=== PATIENT | female | born 1950 | race Caucasian/White ===

== ENCOUNTER 2020-08-13 09:12 | Inpatient (IN) | payer OTHER, SELFPAY ==
[~2020-08-13] VITALS: Ht 160 cm; Wt 72.6 kg
[~2020-08-13 09:12] MED LIST: BENA10TA25 PO; LEVO0.083 PO; METF500T PO; OMEP40EC24 PO; SIMV20TA1 PO; SITA100T8 PO
--- NOTE | 2020-08-13 09:13 | NUR ---
Patient BIBA BLS, transferred to bed 8. RN is evaluating the patient at bedside.
[2020-08-13 09:18] VITALS: BP 157/56
--- NOTE | 2020-08-13 09:27 | NUR ---
70 Y/O FEMALE BIBA FROM HOME, PATIENT TESTED POSITIVE FOR COVID ON SUNDAY AND HAS BEEN FEELING GRADUAL ONSET OF GEN WEAKNESS FOR 4 DAYS. PATIENT DX WITH LUNG CANCER X2 WEEKS AGO. MILD SOB REPORTED. VSS. RESP EVEN AND UNLABORED. PATIENT UNABLE TO AMBULATE AT THIS TIME D/T WEAKNESS. ALLERGIES: MORPHINE, NORCO PMH: LUNG CANCER, DM, HTN
--- NOTE | 2020-08-13 09:30 | NUR ---
Dr. Pham is evaluating the patient at bedside.
[2020-08-13] MEDS ORDERED: KETOROLAC 30 MG/ML VIAL IVP ONE (09:35)
[2020-08-13] MEDS ORDERED: NACL 0.9% 1,000 ML IV ONE (09:35)
[2020-08-13] MEDS ORDERED: LOSA25TA43 PO (09:36)
[2020-08-13] MEDS ORDERED: METO25TA14 PO (09:36)
[2020-08-13] MEDS ORDERED: VITD400 PO (09:37)
--- NOTE | 2020-08-13 09:49 | NUR ---
highway maintenance technician at bedside.
[2020-08-13 10:16] LABS: BASOPHILS % (AUTO) 0.4 % (0.0-2.0); EOSINOPHILS % (AUTO) 0.2 % (0.0-4.0); HEMOGLOBIN 12.8 g/dL (12.0-16.0); LYMPHOCYTES # (AUTO) 0.7 K/uL (2.5-16.5); LYMPHOCYTES % (AUTO) 22.3 % (20.5-51.1); MEAN CORPUSCULAR HEMOGLOBIN 31 pg (27-31); MEAN CORPUSCULAR HGB CONC 34 g/dL (33-37); MEAN CORPUSCULAR VOLUME 93.1 fL (80-94); MONOCYTES # (AUTO) 0.2 K/uL (0.8-1.0); MONOCYTES % (AUTO) 6.6 % (1.7-9.3); NEUTROPHILS # (AUTO) 2.2 K/uL (1.8-7.7); NEUTROPHILS % (AUTO) 70.5 % (42.2-75.2); PLATELET COUNT (AUTO) 145 K/uL (140-450); RED BLOOD CELL COUNT(AUTO) 4.08 MIL/uL (4.20-5.40); RED CELL DISTRIBUTION WIDTH 13.3 % (11.6-13.7); WHITE BLOOD COUNT (AUTO) 3.1 K/uL (4.8-10.8)
[2020-08-13 10:49] LABS: ALBUMIN 3.5 g/dL (3.4-5.0); ANION GAP 15.5 (8-16); CARBON DIOXIDE 22.6 mmol/L (21-32); CREATININE 0.7 mg/dL (0.6-1.3); POTASSIUM 4.1 mmol/L (3.5-5.1); TOTAL BILIRUBIN 0.3 mg/dL (0.0-1.0)
--- NOTE | 2020-08-13 10:54 | NUR ---
Dr. Pham is reevaluating the patient at bedside.
[2020-08-13] MEDS ORDERED: AZITHROMYCIN 500 MG in DEXTROSE 5% 250 ML IV ONE (11:00)
[2020-08-13] MEDS: NACL 0.9% 1,000 ML IV SCH ×2 (11:02→21:02)
[2020-08-13] MEDS ORDERED: DOCUSATE SODIUM 100 MG GELCAP PO PRN (11:05)
[2020-08-13] MEDS ORDERED: MORPHINE SULFATE 2 MG/ML SYR IVP PRN (11:05)
[2020-08-13] MEDS ORDERED: ZOLPIDEM 5 MG TAB PO PRN (11:05)
[2020-08-13] MEDS ORDERED: ACETAMINOPHEN 325 MG TAB PO PRN (11:05)
[2020-08-13] MEDS ORDERED: HYDROcodone/APAP 5/325 MG 1 TAB TAB PO PRN (11:05)
[2020-08-13] MEDS ORDERED: ALBUTEROL HFA MDI 90 MCG/ACTUATION 8 GM INH PRN (11:05)
[2020-08-13] MEDS ORDERED: ONDANSETRON 4 MG/2 ML VIAL IVP PRN (11:05)
[2020-08-13] MEDS ORDERED: cefTRIAXone 1,000 MG VIAL ONE (11:12)
[2020-08-13 11:35] VITALS: BP 143/91
--- NOTE | 2020-08-13 11:35 | NUR ---
RECEIVED REPORT FROM ER NURSE VENICE WALL PATIENT IS AMBULATORY, AAOX4, ON OXYGEN AT 2LPM VIA NC, SKIN INTACT AND IV SITES INTACT AND PATENT ON THE RIGHT AC. ORIENTED TO HER ROOM, MEDICATIONS FROM HOME GIVEN TO PHARMACY FOR SAFE KEEPING. SAFETY MEASURES IN PLACE AND CALL LIGHT WITHIN REACH. WILL CONTINUE TO MONITOR.
[2020-08-13 11:40] LABS: CHOL/HDL RATIO 2.2 (1-4.5); MAGNESIUM 1.9 mg/dL (1.8-2.4); PHOSPHORUS 2.7 mg/dL (2.5-4.9)
--- NOTE | 2020-08-13 11:44 | NUR ---
Patient will be admitted to care of [facility]. Admited to TELE. Will go to room 115. Belongings list completed. Report to AMY.
[2020-08-13 11:46] LABS: PROTHROMBIN TIME 9.3 secs (10.8-13.4)
[2020-08-13 12:02] LABS: FREE T4 (FREE THYROXINE) 1.59 ng/dL (0.76-1.46); THYROID STIMULATING HORMONE 0.11 uIU/mL (0.34-3.74)
[2020-08-13] MEDS ORDERED: DEXTROSE 50% 50 ML SYR IVP PRN (12:05)
[2020-08-13] MEDS ORDERED: AZITHROMYCIN 500 MG in DEXTROSE 5% 250 ML IV SCH (12:24)
--- NOTE | 2020-08-13 12:30 | NUR ---
MEDICATIONS DUE GIVEN AT THIS TIME, NO DISTRESS NOTED, DENIES PAIN AND PATIENT HAS GENERAL WEAKNESS ABLE TO AMBULATE WITH 1 ASSIST. SAFETY MEASURES IN PLACE, CALL LIGHT WITHIN REACH WILL CONTINUE TO MONITOR.
--- NOTE | 2020-08-13 14:30 | NUR ---
,MADE ROUNDS AT THIS TIME PATIENT IS SLEEPING, NO DISTRESS NOTED , DENIES PAIN SAFETY MEASURES IN PLACE CALL LIGHT WITHIN REACH WILL CONTINUE TO MONITOR.
[2020-08-13 16:00] VITALS: BP 135/68
--- NOTE | 2020-08-13 16:30 | NUR ---
BLOOD SUGAR MONITORING DONE AT A LEVEL OF 130 MG/DL NO INSULIN COVERAGE. SAFETY MEASURES IN PLACE AND CALL LIGHT WITHIN REACH. WILL CONTINUE TO MONITOR.
[2020-08-13] MEDS: BLOOD GLUCOSE MONITORING 1 DEV DEV FS SCH ×2 (16:52→21:13)
--- NOTE | 2020-08-13 19:17 | NUR ---
ENDORSED PT TO NIGHT NURSE FOR CONTINUITY OF CARE. PT IS STABLE.
--- NOTE | 2020-08-13 19:18 | NUR ---
RECEIVED PATIENT IN STABLE CONDITION FROM AM SHIFT NURSE FOR CONTINUITY OF CARE. TELE PATIENT. AAOX4. RESPIRATIONS EVEN, UNLABORED. SOB UPON EXERTION. CONTINUES ON O2 2L VIA NC, O2SAT 97%. NO C/O PAIN. NO S/S ACUTE DISTRESS. SKIN WARM, DRY. IV SITE TO RIGHT AC 18G PATENT/INTACT, INFUSING FLUIDS WELL. ABDOMEN SOFT, NONTENDER, NONDISTENDED. PATIENT IS CONTINENT OF B/B. PLAN OF CARE DISCUSSED WITH PATIENT. CALL LIGHT WITHIN REACH. ISOLATION PRECAUTIONS OBSERVED BY ALL STAFF.
[2020-08-13] MEDS ORDERED: remdesivir COMMUNICATION ORDER 1 EA MISC MC PRN (19:40)
[2020-08-13 20:00] VITALS: BP 121/65
--- NOTE | 2020-08-13 20:04 | NUR ---
PT SPO2 96% ON RA HR 83 PT SITTING UP TALKING ON PHONE PT DENIES SOB W/ NO S/S OF DISTRESS AT THIS TIME
[2020-08-13] MEDS: METOPROLOL 25 MG TAB PO SCH (20:50)
[2020-08-13] MEDS: SIMVASTATIN 20 MG TAB PO SCH (20:50)
[2020-08-13] MEDS: ZINC SULF 220 MG CAP PO SCH (20:50)
--- NOTE | 2020-08-13 21:00 | NUR ---
PATIENT TITRATED TO ROOM AIR WITH AN O2SAT OF 97%. PATIENT CONTINUES TO BE SOB UPON EXERTION. PROVIDED EDUCATION REGARDING FREQUENT REST PERIODS. PATIENT VERBALIZED UNDERSTANDING. NO C/O PAIN. NO S/S ACUTE DISTRESS. CALL LIGHT WITHIN REACH. ISOLATION PRECAUTIONS OBSERVED BY ALL STAFF.
[2020-08-13] MEDS: INSULIN LISPRO SLIDING SCALE 100 UNITS/ML VIAL SUBQ PRN (21:14)
--- NOTE | 2020-08-13 22:30 | NUR ---
PATIENT'S POSITIVE RAPID COVID TEST REPORTED TO DR WEST.
--- NOTE | 2020-08-13 23:00 | NUR ---
PATIENT TALKING ON PHONE WITH FAMILY. NO C/O PAIN. NO S/S ACUTE DISTRESS. CALL LIGHT WITHIN REACH. ISOLATION PRECAUTIONS OBSERVED BY ALL STAFF.
[2020-08-14] VITALS: BP 121/62
--- NOTE | 2020-08-14 | NUR ---
PT SITTING UP IN BED WITH 2 LITERS VIA N/C. PT B/P LIZZ ANY SOB OR PAIN BUT APPEARS ANXIOUS, PT DECLINES ANY PRN MEDICATION AT THIS TIME. V/S FOLLOWS: T 98.2 P 57 R 18 B/P 134/73 02 96% ON 2 LITERS VIA N/C. Addendum: 08/15/20 at 0151 by Adelia Gill RN NOT 08/14/20 AT MIDNIGHT BUT 08/15/20 AT MIDNIGHT.
--- NOTE | 2020-08-14 01:37 | NUR ---
PATIENT ASLEEP. NO S/S ACUTE DISTRESS. CALL LIGHT WITHIN REACH. ISOLATION PRECAUTIONS OBSERVED BY ALL STAFF.
--- NOTE | 2020-08-14 03:42 | NUR ---
PATIENT IS ASLEEP. NO S/S ACUTE DISTRESS. CALL LIGHT WITHIN REACH. ISOLATION PRECAUTIONS IN PLACE.
[2020-08-14 04:00] VITALS: BP 130/80
--- NOTE | 2020-08-14 05:54 | NUR ---
PATIENT IS AWAKE AND RESTING COMFORTABLY IN BED. NO C/O PAIN. NO S/S ACUTE DISTRESS. CALL LIGHT WITHIN REACH. ISOLATION PRECAUTIONS OBSERVED BY ALL STAFF.
[2020-08-14] MEDS: BLOOD GLUCOSE MONITORING 1 DEV DEV FS SCH ×4 (06:30→21:00)
[2020-08-14] MEDS: NACL 0.9% 1,000 ML IV SCH ×2 (06:30→09:45)
[2020-08-14] MEDS: INSULIN LISPRO SLIDING SCALE 100 UNITS/ML VIAL SUBQ PRN ×3 (06:31→16:49)
[2020-08-14] MEDS: LEVOTHYROXINE 0.088 MG TAB PO SCH (06:32)
--- NOTE | 2020-08-14 07:01 | NUR ---
ENDORSED PATIENT IN STABLE CONDITION TO AM SHIFT NURSE FOR CONTINUITY OF CARE.
[2020-08-14 07:09] LABS: HEMATOCRIT 36.9 % (36-48); HEMOGLOBIN 12.7 g/dL (12.0-16.0); MEAN CORPUSCULAR HEMOGLOBIN 32 pg (27-31); MEAN CORPUSCULAR HGB CONC 34 g/dL (33-37); MEAN CORPUSCULAR VOLUME 92.7 fL (80-94); PLATELET COUNT (AUTO) 163 K/uL (140-450); RED BLOOD CELL COUNT(AUTO) 3.98 MIL/uL (4.20-5.40); RED CELL DISTRIBUTION WIDTH 13.1 % (11.6-13.7)
--- NOTE | 2020-08-14 07:12 | NUR ---
RECEIVED REPORT FROM RESIDENTIAL PROGRAM WORKER RN FOR CONTINUITY OF CARE. PATIENT IS SLEEPING IN BED. RESPIRATORY EVEN AND UNLABORED. CONTINUOUSLY O2 2L VIA NC. SKIN WARM AND DRY. INTACT. IV SITE RIGHT AC 18G INFUSING NS 100ML/HR. DROPLET PRECAUTION NOTED FOR POSITIVE COVID 19. NO ACUTE DISTRESS NOTED AT THIS TIME. SAFETY MEASURES IN PLACE, CALL LIGHT WITHIN REACH. WILL CONTINUE TO MONITOR.
[2020-08-14 07:20] LABS: ALBUMIN 3.2 g/dL (3.4-5.0); ANION GAP 18.3 (8-16); CARBON DIOXIDE 23.6 mmol/L (21-32); CREATININE 0.7 mg/dL (0.6-1.3); MAGNESIUM 1.7 mg/dL (1.8-2.4); PHOSPHORUS 2.5 mg/dL (2.5-4.9); POTASSIUM 3.9 mmol/L (3.5-5.1); TOTAL BILIRUBIN 0.3 mg/dL (0.0-1.0)
[2020-08-14 07:54] LABS: WHITE BLOOD COUNT (AUTO) 1.8 K/uL (4.8-10.8)
[2020-08-14 07:55] LABS: LYMPHOCYTES % (MANUAL) 34 % (20-46); MONOCYTES % (MANUAL) 6 % (5-12)
[2020-08-14 08:00] VITALS: BP 139/87
[2020-08-14] MEDS ORDERED: AZITHROMYCIN 250 MG TAB PO SCH (09:00)
[2020-08-14] MEDS: VITAMIN D 400 IU TAB PO SCH (09:33)
[2020-08-14] MEDS: ZINC SULF 220 MG CAP PO SCH ×2 (09:34→22:22)
[2020-08-14] MEDS: LOSARTAN 25 MG TAB PO SCH (09:35)
[2020-08-14] MEDS: ASCORBIC ACID 500 MG TAB PO SCH (09:35)
[2020-08-14] MEDS: METOPROLOL 25 MG TAB PO SCH ×2 (09:35→22:21)
[2020-08-14] MEDS: ENOXAPARIN 40 MG/0.4 ML SYR SUBQ SCH (09:43)
--- NOTE | 2020-08-14 09:45 | NUR ---
SCHEDULED MORNING MEDICATIONS GIVEN, EDUCATION PROVIDED, PATIENT TOLERATED WELL. PATIENT COMPLAINTS OF PRODUCTIVE COUGH AND FATIGUE, POOR APPETITE. INFORMED PATIENT THOSE ARE TYPICAL S/S OF COVID. ENCOURAGED PT TO TAKE DEEP BREATHE, KEEP HYDRATION AND TRY TO INTAKE SOME FOOD TO KEEP NUTRITION. PATIENT VERBALIZED UNDERSTANDING AND APPRECIATE OFFERING TEACHING. O2 SAT 96-97% WITH 2L NC. SAFETY MEASURES IN PLACE, CALL LIGHT WITHIN REACH. WILL CONTINUE TO MONITOR.
[2020-08-14] MEDS ORDERED: CLINICAL MONITORING MC PRN (09:50)
[2020-08-14] MEDS ORDERED: POTASSIUM CHLORIDE 40 MEQ, LIDOCAINE MPF 1% 25 MG in NACL 0.9% 250 ML IV PRN (11:05)
--- NOTE | 2020-08-14 11:54 | NUR ---
ADMINISTERED FIRST DOSE OF REMDESIVIR VIA IVPB. ADMINISTERED 4 UNITS OF HUMALOG FOR BLOOD GLUCOSE LEVEL 214. EDUCATION PROVIDED, PATIENT TOLERATED WELL. PATIENT DENIES DISCOMFORT AT THIS TIME. SAFETY MEASURES IN PLACE, WILL CONTINUE TO MONITOR.
[2020-08-14 12:00] VITALS: BP 144/74
[2020-08-14] MEDS ORDERED: REMDESIVIR (EUA) 200 MG in NACL 0.9% 100 ML IV SCH (12:00)
[2020-08-14] MEDS ORDERED: MAGNESIUM OXIDE 400 MG TAB PO SCH (13:00)
[2020-08-14 16:00] VITALS: BP 139/74
--- NOTE | 2020-08-14 16:49 | NUR ---
2 UNITS OF HUMALOG ADMINISTERED FOR BLOOD GLUCOSE LEVEL 185, EDUCATION PROVIDED, PATIENT TOLERATED WELL. O2 SAT 95% WITH 2L NC. NO ACUTE DISTRESS NOTED. SAFETY MEASURES IN PLACE, CALL LIGHT WITHIN REACH. WILL CONTINUE TO MONITOR.
--- NOTE | 2020-08-14 18:22 | NUR ---
PATIENT HAVING DINNER. O2 SAT 97% WITH 2L NC. DENIES PAIN. SAFETY MEASURES IN PLACE. WILL CONTINUE TO MONITOR.
--- NOTE | 2020-08-14 19:30 | NUR ---
RECEIVED REPORT FROM CARINA MARQUEZ DAYSHIFT NURSE AT BEDSIDE FOR CONTINUITY OF CARE, PT IN STABLE CONDITION.
[2020-08-14 20:00] VITALS: BP 147/72
--- NOTE | 2020-08-14 20:10 | NUR ---
PT DENIES SOB W/ NO DISTRESS NOTE3D PT SPO2 95% ON 2LNC
--- NOTE | 2020-08-14 21:00 | NUR ---
PT SITTING UP IN BED, SHE IS AOX4 AND [place]ER SPEAKING. PT DENIES SOB OR PAIN, RESPIRATIONS ARE EVEN AND UNLABORED. WITH 2 LITERS VIA N/C. PT ON PHONE WITH HER DAUGHTER PEPE, WHOM HELPED TO TRANSLATE FOR PT. PT IV SITE INTACT AND ASYMPTOMATIC AND RUNNING NORMAL SALINE AT 100MLS/HR. PT F/S IS 156. PT COVERAGE HELD DUE TO PT CV/O OF POOR APPETITE. FAMILY SAID TOMORROW THEY WILL BRING HER ETHNIC FOOD TO ENCOURAGE HER TO EAT. KELLY V/S FOLLOWS: T 97.2 P 66 R 18 B/P 147/72 02 95% ON 2 LITERS VIA N/C. PT GIVEN ORDERED MEDICATION OF LOPRESSOR, ZINC SULFATE AND ZOCOR. EDUCATION REGARDING MEDICATION PROVIDED AT BEDSIDE. DROPLET PRECAUTIONS IN PLACE.
[2020-08-14] MEDS ORDERED: CRUSHER, PILL MC ONE (22:12)
--- NOTE | 2020-08-14 22:15 | NUR ---
PT SITTING UP WITH 2 LITERS VIA N/C. RESPIRATIONS EVEN AND UNLABORED BUT PT MOANING A BIT AND APPEARS RESTLESS. PT SAID SHE JUST FEELS BAD, HOWEVER, DECLINED ANY PRN MEDICATION FOR NAUSEA, INSOMNIA OR ANXIETY. WILL CONTINUE TO MONITOR, ALL DROPLET PRECAUTIONS IN PLACE.
[2020-08-14] MEDS: SIMVASTATIN 20 MG TAB PO SCH (22:22)
[2020-08-15] VITALS: BP 134/73
--- NOTE | 2020-08-15 00:15 | NUR ---
PT SITTING UP IN BED AND APPEARS ANXIOUS AND SLIGHTLY UNCOMFORTABLE . PT DENIES ANY SOB OR PAIN PT SAID SHE JUST FEELS BAD, BUT DECLINES ANY PRN MEDICATION. V/S FOLLOWS; T 98.2 P 57 R 18 B/P 134/73 02 96% WITH 2 LITERS VIA N/C. ALL DROPLET PRECAUTIONS IN PLACE.
--- NOTE | 2020-08-15 01:15 | NUR ---
PT STILL UP MOANING. WITH C/O OF DISCOMFORT OF BELLY, ABDOMEN SOFT AND DISTENDED. PT WAS TRANSLATED NOT HAVING PAIN BUT JUST FEELING BAD AND HER BELLY FEELS UPSET, PT WAS GIVEN 1 TAB PO/PRN COLACE AND ENCOURAGE TO DRINK WATER, PT DENIES PAIN, NAUSEA AND ANXIETY. WILL CONTINUE TO MONITOR DROPLET PRECAUTIONS IN PLACE,
[2020-08-15] MEDS: NACL 0.9% 1,000 ML IV SCH ×3 (03:51→23:25)
[2020-08-15 04:00] VITALS: BP 133/74
--- NOTE | 2020-08-15 04:30 | NUR ---
PT IN BED SAID HER BELLY FELT BETTER AND THAT SHE HAD HAD A BM. V/S FOLLOWS: T 97.3 P 62 R 18 B/P 133/74 02 94% ON 2 LITERS VIA N/C. ALL DROPLET AND UNIVERSAL FALLS IN PLACE.
[2020-08-15 06:09] LABS: BASOPHILS % (AUTO) 0.3 % (0.0-2.0); HEMATOCRIT 35.2 % (36-48); HEMOGLOBIN 12.1 g/dL (12.0-16.0); LYMPHOCYTES # (AUTO) 0.9 K/uL (2.5-16.5); LYMPHOCYTES % (AUTO) 17.6 % (20.5-51.1); MEAN CORPUSCULAR HEMOGLOBIN 32 pg (27-31); MEAN CORPUSCULAR HGB CONC 34 g/dL (33-37); MEAN CORPUSCULAR VOLUME 92.2 fL (80-94); MONOCYTES # (AUTO) 0.4 K/uL (0.8-1.0); MONOCYTES % (AUTO) 8.2 % (1.7-9.3); NEUTROPHILS # (AUTO) 3.9 K/uL (1.8-7.7); NEUTROPHILS % (AUTO) 73.9 % (42.2-75.2); PLATELET COUNT (AUTO) 169 K/uL (140-450); RED BLOOD CELL COUNT(AUTO) 3.82 MIL/uL (4.20-5.40); RED CELL DISTRIBUTION WIDTH 13.2 % (11.6-13.7); WHITE BLOOD COUNT (AUTO) 5.3 K/uL (4.8-10.8)
--- NOTE | 2020-08-15 06:30 | NUR ---
P[T FINGERSTICK IS 114 NO HUMALOG COVERAGE NEEDED.
[2020-08-15 06:32] LABS: ALBUMIN 3.1 g/dL (3.4-5.0); ANION GAP 12.2 (8-16); CARBON DIOXIDE 24.4 mmol/L (21-32); CREATININE 0.5 mg/dL (0.6-1.3); POTASSIUM 3.6 mmol/L (3.5-5.1); TOTAL BILIRUBIN 0.3 mg/dL (0.0-1.0)
[2020-08-15] MEDS: BLOOD GLUCOSE MONITORING 1 DEV DEV FS SCH ×4 (06:34→20:02)
[2020-08-15 06:46] LABS: MAGNESIUM 1.8 mg/dL (1.8-2.4); PHOSPHORUS 2.6 mg/dL (2.5-4.9)
--- NOTE | 2020-08-15 07:10 | NUR ---
RECEIVED REPORT FROM PM RNPAT. PT CAME FROM HOME. GREEK SPEAKING. CC: FATIGUE, SOB, "NOT FEELING WELL". DX: COVID 19+, GEN WEAKNESS. HX: C SECTION, ASTHMA, HLD, THYROID CA, DM, HTN. ALLERGIES: TYLENOL, HYDROCODONE, MORPHINE. SINUS R: SB 48-55. FULLL CODE. IV: RAC 18G RUNNING NS AT 100MLS. PT IS ON CARDIAC DIET. A&OX4. PT IS AMBULATORY. PT IS ON 2L NC SATING 95-99%. LAST BLOOD SUGAR: 114. PLAN: MONITOR O2 SAT, F/U WITH CONSULTS.
[2020-08-15 08:00] VITALS: BP 128/81
[2020-08-15] MEDS: LOSARTAN 25 MG TAB PO SCH (08:40)
[2020-08-15] MEDS: VITAMIN D 400 IU TAB PO SCH (08:40)
[2020-08-15] MEDS: ENOXAPARIN 40 MG/0.4 ML SYR SUBQ SCH (08:41)
[2020-08-15] MEDS: ASCORBIC ACID 500 MG TAB PO SCH (08:41)
[2020-08-15] MEDS: ZINC SULF 220 MG CAP PO SCH ×2 (08:41→20:03)
[2020-08-15] MEDS: MAGNESIUM OXIDE 400 MG TAB PO SCH (08:41)
[2020-08-15] MEDS: METOPROLOL 25 MG TAB PO SCH ×2 (08:43→20:03)
--- NOTE | 2020-08-15 09:00 | NUR ---
PASSED MEDICATIONS TO PT. PT IS COMPLAINING OF ABDOMINAL PAIN. ASSESSED: PT ABD IS FIRM AND TENDER TO TOUCH. NOTIFIED DR COSTA. WAITING FOR FURTHER ORDERS.
--- NOTE | 2020-08-15 09:42 | NUR ---
PATIENT HAS BEEN SCREENED AND CATEGORIZED HIGH NUTRITION RISK. PATIENT WILL BE SEEN WITHIN 1-2 DAYS OF ADMISSION. 08/14/20 - 08/15/20 YESSICA ORTIZ MBA, RD
--- NOTE | 2020-08-15 10:30 | NUR ---
DR COSTA ORDERED ANTI GAS MEDICATION TO HELP WITH DISTENSION. GIVEN TO PT.
--- NOTE | 2020-08-15 10:35 | NUR ---
08/15/20 RD INITIAL ASSESSMENT COMPLETED PLEASE REFER TO NUTRITION ASSESSMENT UNDER CARE ACTIVITY FOR ESTIMATED NUTRITIONAL NEEDS. RD RECOMMENDATIONS: 1. RECOMMEND CONTINUE CARDIAC DIET 2. ADD DIET HEALTHSHAKES WITH LUNCH 3. HONOR FOOD PREFERENCES & ENCOURAGE INCREASED PO INTAKE 4. F/U 2-3 DAYS; HIGH RISK YESSICA ORTIZ MBA, RD
--- NOTE | 2020-08-15 11:04 | NUR ---
EDITOR GREETING CARD NOTE: Patient's Orientation Unable To Assess Information Provided By LI HOLMAN - DAUGHTER Comments SW WAS UNABLE TO MEET PATIENT AT BEDSIDE DUE TO MEDICAL CONDITION. SW COMPLETED ASSESSMENT WITH PATIENT'S DAUGHTER, LI. Mix Chemist, Realtionship and Phone Number LI HUSSEIN [phone] Healthcare Power of Lopper No Does Patient Have a POLST No Identifying Problems No Social Work Triggers Is A Social Work Consult Needed No Mandate Report Filed No Explanation Of Identifying Problems PATIENT IS A 70-YEAR-OLD FEMALE ADMITTED FOR COVID AND PNEUMONIA. PATIENT AHS PMHX OF THYROID CANCER, HYPERTENSION, HYPERLIPEDEMIA, AND TYPE 2 DIABETES. Admitted From Home Pre-Admission Level Of Functioning Status Total Care Level Of Functioning Comment PER LI, PATIENT REQUIRES TOTAL CARE. Prior Resources/Services Used In Last 12 Months [facility] Prior Resources/Service Comments PATIENT RECEIVES 114 HOURS MONTHLY FROM [facility]. Prior DME Wheelchair Dialysis Comments PER LI, PATIENT DOES NOT RECEIVE DIALYSIS. Living Situation Apartment Cond Patient Had Caregiver Yes Name and Contact Number Of Designated Caregiver LI HOLMAN - [phone] Home Support No Caregiver Issues Explanation Of Home Support PER LI, ALL PATIENT'S NEEDS ARE BEING MET. Financial Issues No Known Financial Issue Referral To The Financial Counselor Needed No Factors/Needs No D/C Needs Identified Pt/Rep Participated In Discharge Plan Yes Patient/Family Agress With Discharge Plan Yes Discharge Plan Comments TENTATIVE DISCHARGE PLAN IS FOR PATIENT TO RETURN HOME. DC Plan Status Initiated
[2020-08-15] MEDS ORDERED: SIMETHICONE 80 MG TAB.CHEW PO PRN (11:25)
--- NOTE | 2020-08-15 11:30 | NUR ---
PTS BLOOD SUGAR: 153, NO INSULIN GIVE DUE TO PT REFUSING TO EAT. DR. COSTA NOTIFIED.
[2020-08-15] MEDS: REMDESIVIR (EUA) 100 MG in NACL 0.9% 100 ML IV SCH (11:52)
[2020-08-15 12:00] VITALS: BP 141/79
[2020-08-15] MEDS: LORazepam 2 MG/ML VIAL IM/IVP PRN (12:47)
--- NOTE | 2020-08-15 13:00 | NUR ---
GAVE PT ATIVAN DUE TO PT FEELING ANXIOUS.
[2020-08-15] MEDS ORDERED: BENZOCAINE/MENTHOL 1 LOZ MM PRN (15:35)
[2020-08-15 16:00] VITALS: BP 130/62
[2020-08-15] MEDS: INSULIN LISPRO SLIDING SCALE 100 UNITS/ML VIAL SUBQ PRN ×2 (16:23→20:07)
--- NOTE | 2020-08-15 16:30 | NUR ---
PTS BLOOD SUGAR: 206, 4 UNITS. NO COMPLAINTS OF PAIN. GAVE COUGH MED TO SOOTHE THROAT. VS STABLE.
--- NOTE | 2020-08-15 19:15 | NUR ---
TRANSFER OF CARE TO ZACHARIAH MARQUEZ. NO COMPLAINTS OF PAIN, SOB, OR CHEST PAIN. VS STABLE. NO SIGNS OF DISTRESS.
--- NOTE | 2020-08-15 19:15 | NUR ---
RECEIVED BEDSIDE REPORT FROM DAY SHIFT NURSE FOR CONTINUITY OF CARE. PT IS AWAKE AND ALERT. LAYING IN SEMI FOWLERS POSITION AND NO RESPIRATORY DISTRESS NOTED. BREATHING IS UNLABORED. CHEST RISE AND FALL IS SYMMETRICAL. PT WAS AT O2 SAT 90% AND WAS INSTRUCTED TO PLACE OXYGEN BACK ON NARES. PT DID SO AND O2 SAT IS NOW 94%. SKIN IS WARM, DRY, AND INTACT. IV IS IN THE LEFT HAND 24 GAUGE RUNNING NS AT 100 ML PER HOUR PER ORDER. PT IS COVID 19 POSITIVE. DROPLET PRECAUTIONS AND FALL PRECAUTIONS ARE IN PLACE. BED IS IN THE LOWEST POSITION AND CALL LIGHT IS WITHIN REACH. PLAN OF CARE WAS DISCUSSED. PT IS STABLE AT THIS TIME.
[2020-08-15 20:00] VITALS: BP 131/62
[2020-08-15] MEDS: SIMVASTATIN 20 MG TAB PO SCH (20:04)
--- NOTE | 2020-08-15 20:07 | NUR ---
CHECKED PT'S BS AND THE READING WAS 175. PT WAS GIVEN 2 UNITS HUMALOG INSULIN PER SLIDING SCALE. MEDICATION EDUCATION WAS PROVIDED AND PT VERBALIZED UNDERSTANDING. WILL CONTINUE TO MONITOR.
--- NOTE | 2020-08-15 21:00 | NUR ---
PT IS AWAKE AND ALERT. A&OX4. PT DENIES ANY PAIN AT THIS TIME. SHE IS NOT COUGHING CURRENTLY. SITTING UPRIGHT IN BED. FLUIDS ARE RUNNING AND THE IV IS PATENT. BED IS IN THE LOWEST POSITION AND CALL LIGHT IS WITHIN REACH.
--- NOTE | 2020-08-15 21:22 | NUR ---
PT DENIES SOB 97% ON 2LNC HR 55
--- NOTE | 2020-08-15 22:45 | NUR ---
PT IS UP TO THE RESTROOM. PT AMBULATED WITH STANDBY ASSISTANCE. GAIT WAS STEADY, BUT PT APPEARED TO BE IN SOME PAIN. SHE DENIES ANY PAIN AT THE TIME. SHE IS NOW BACK IN BED AND RESTING IN SEMI FOWLERS POSITION. IV IS INFUSING AND NC IS ON WITH 2L OF OXYGEN. O2 SAT IS 95%. PT IS STABLE.
[2020-08-16] VITALS: BP 140/68
--- NOTE | 2020-08-16 00:30 | NUR ---
CALLED LAB AND ASKED IF PT HAD RECEIVED CONVALESCENT PLASMA 1 UNIT ORDERED ON 08/13/2020. WAS INFORMED PT HAD NO RECEIVED PLASMA. THEY INFORMED ME TO PUT IN AN ORDER FOR TYPE AND SCREEN AND PUT IN THE COMMENTS "CONVALESCENT PLASMA 1 UNIT" SO THEY WILL KNOW TO ORDER THE PLASMA. THEY INFORMED ME IT WILL TAKE AT LEAST A DAY BEFORE RECEIVING THE PLASMA AFTER THE TYPE AND SCREEN. WILL ENDORSE TO DAY SHIFT NURSE.
--- NOTE | 2020-08-16 00:45 | NUR ---
ROUNDED ON PT. SHE IS ASLEEP. CHEST RISE AND FALL IS SYMMETRICAL. NC IN PLACE WITH 2L O2. O2 SAT IS 96%. PT IS STABLE AT THIS TIME, WILL CONTINUE TO MONITOR.
--- NOTE | 2020-08-16 02:50 | NUR ---
PT IS ASLEEP. NO RESPIRATORY DISTRESS NOTED. CHEST RISE AND FALL SYMMETRICAL. PT IS IN HIGH FOWLERS POSITION. SB ON TELE MONITORING. 94% O2 SAT WITH 2L O2 NC. PT IS STABLE.
[2020-08-16 04:00] VITALS: BP 151/84
--- NOTE | 2020-08-16 04:45 | NUR ---
PT IS AWAKE AND SITTING UPRIGHT COUGHING. PT SAYS SHE FEELS SOB. BREATHING IS UNLABORED. O2 SAT IS 96% ON 2L O2 NC. PT WAS ALSO EXPLAINED THAT THE DOCTOR ORDERED CONVALESCENT PLASMA FOR HER COVID 19 DIAGNOSIS. RISKS AND BENEFITS WERE EXPLAINED. THE PURPOSE OF THE PLASMA WAS EXPLAINED. PT WAS GIVEN THE OPTION TO ACCEPT OR DECLINE THE TREATMENT AND SHE AGREED TO RECEIVE THE PLASMA. QUESTIONS WERE ANSWERED. CONSENT WAS SIGNED BY PATIENT.
--- NOTE | 2020-08-16 04:59 | NUR ---
PT IS UP TO THE RESTROOM. GAIT IS STEADY WITH STANDBY ASSISTANCE. PT VOIDED IN THE RESTROOM, NO BM SO FAR ON THIS SHIFT. PT IS NOW BACK IN BED IN HIGH FOWLERS POSITION. REQUESTED AND WAS BROUGHT HOT TEA TO DRINK. OXYGEN IS ON AT 3L O2 AND O2 SAT IS 92%. NO DISTRESS NOTED.
--- NOTE | 2020-08-16 05:45 | NUR ---
SPOKE TO SON, ILANA FARLEY, ON THE PHONE AND HE WAS ASKING FOR AN EXPLANATION ABOUT THE CONVALESCENT PLASMA. TOLD HIM ABOUT THE PURPOSE OF THE TREATMENT AND RISKS AND BENEFITS. SON WOULD LIKE TO SPEAK TO DOCTOR BEFORE PT RECEIVES PLASMA. WILL ENDORSE TO DAY SHIFT NURSE TO FOLLOW UP WITH SON WITH SPEAKING TO THE DOCTOR. ALSO PLACED A NOTE TAPED TO THE SIGNED CONSENT THAT THE SON NEEDS TO SPEAK TO THE DOCTOR BEFORE THE PLASMA IS GIVEN.
[2020-08-16] MEDS: BLOOD GLUCOSE MONITORING 1 DEV DEV FS SCH ×4 (06:05→20:24)
--- NOTE | 2020-08-16 06:10 | NUR ---
CHECKED PT'S BS AND IT WAS 110. IT IS WITHIN NORMAL RANGE AND NO INSULIN IS NEEDED PER SLIDING SCALE. PT IS ON THE PHONE WITH HER DAUGHTER AT THIS TIME.
[2020-08-16] MEDS: LEVOTHYROXINE 0.1 MG TAB PO SCH ×2 (06:34→08:45)
--- NOTE | 2020-08-16 07:20 | NUR ---
ENDORSED PT TO DAY SHIFT NURSE FOR CONTINUITY OF CARE. PT IS STABLE AT THIS TIME. PLAN OF CARE DISCUSSED. ENDORSED TO DAY SHIFT NURSE TO HAVE THE DOCTOR SPEAK WITH THE SON, ILANA, BEFORE THE PT RECEIVES THE PLASMA.
--- NOTE | 2020-08-16 07:21 | NUR ---
EIVED ENDORSEMENT FROM UNIVERSITY COUNSELOR, AWAKE,ALERT,ORIENTEDX3, BREATHING SPONTANEOUSLY AT ROOM AIR, NON LABORED NOTED. WITH ONGOING IV FLUID 0.9% NS AT 100ML/HOUR INFUSING AT LEFT HAND G 20 IV CANNULA NOTED. ON DROPLET ISOLATION DX WITH COVID POSITIVE. SAFETY MEASURES IN PLACE AND CONTINUE MONITOR. Addendum: 08/16/20 at 0902 by Cuauhtemoc Proctor RN RECEIVED ON O2 AT 3L/MIN VIA NC, SATURATING AT 94-95%.
[2020-08-16 07:58] LABS: BASOPHILS % (AUTO) 0.1 % (0.0-2.0); HEMATOCRIT 35.4 % (36-48); HEMOGLOBIN 12.2 g/dL (12.0-16.0); LYMPHOCYTES # (AUTO) 1.1 K/uL (2.5-16.5); LYMPHOCYTES % (AUTO) 13.6 % (20.5-51.1); MEAN CORPUSCULAR HEMOGLOBIN 32 pg (27-31); MEAN CORPUSCULAR HGB CONC 35 g/dL (33-37); MEAN CORPUSCULAR VOLUME 92.3 fL (80-94); MONOCYTES # (AUTO) 0.6 K/uL (0.8-1.0); MONOCYTES % (AUTO) 6.8 % (1.7-9.3); NEUTROPHILS # (AUTO) 6.5 K/uL (1.8-7.7); NEUTROPHILS % (AUTO) 79.5 % (42.2-75.2); PLATELET COUNT (AUTO) 184 K/uL (140-450); RED BLOOD CELL COUNT(AUTO) 3.84 MIL/uL (4.20-5.40); RED CELL DISTRIBUTION WIDTH 12.8 % (11.6-13.7); WHITE BLOOD COUNT (AUTO) 8.2 K/uL (4.8-10.8)
[2020-08-16 08:00] VITALS: BP 135/68
[2020-08-16 08:25] LABS: ALBUMIN 3.1 g/dL (3.4-5.0); ANION GAP 13.5 (8-16); CARBON DIOXIDE 24.8 mmol/L (21-32); CREATININE 0.5 mg/dL (0.6-1.3); POTASSIUM 3.3 mmol/L (3.5-5.1); TOTAL BILIRUBIN 0.3 mg/dL (0.0-1.0)
--- NOTE | 2020-08-16 08:30 | NUR ---
SEEN AND EXAMINED BY DR. COSTA, MADE AWARE THAT THE CONSENT FOR BLOOD TRANSFUSION NOT YET SIGN BY THE PATIENT,THE SON WANTS TO SPEAK WITH THE DOCTOR PRIOR THEY WILL DECIDE.
[2020-08-16] MEDS: VITAMIN D 400 IU TAB PO SCH (08:41)
[2020-08-16] MEDS: LOSARTAN 25 MG TAB PO SCH (08:44)
[2020-08-16] MEDS: MAGNESIUM OXIDE 400 MG TAB PO SCH (08:44)
[2020-08-16] MEDS: ASCORBIC ACID 500 MG TAB PO SCH (08:45)
[2020-08-16] MEDS: ZINC SULF 220 MG CAP PO SCH ×2 (08:45→20:25)
[2020-08-16] MEDS: METOPROLOL 25 MG TAB PO SCH ×2 (08:47→20:25)
[2020-08-16] MEDS: ENOXAPARIN 40 MG/0.4 ML SYR SUBQ SCH (08:48)
[2020-08-16] MEDS: NACL 0.9% 1,000 ML IV SCH ×2 (08:49→20:24)
--- NOTE | 2020-08-16 09:00 | NUR ---
FULLY AWAKE AND ALERT, DUE MEDICATION GIVEN. CONTINUE MONITOR
--- NOTE | 2020-08-16 10:23 | NUR ---
THE SON IN [facility] CONTACTED AND SPOKE WITH DR. COSTA, AGREED FOR BLOOD TRANSFUSION OF 1 UNIT CONVALESCENT PLASMA. CONSENT SIGNED BY THE PATIENT AND BY DR. COSTA.
--- NOTE | 2020-08-16 10:58 | NUR ---
DC PLANN[age] YRS OLD FEMALE PATIENT WAS ADMITTED FROM HOME WITH A DX OF COVID- PNEUMONIA. PT HAS A HX OF THYROID CANCER, HLD,AND HTN. CXR SHOWED PATCHY PERIPHERAL AIRSPACE OPACITIES IN THE LEFT GRETER THAT RIGHT LUNGS WHICH MAY REPRESENT MULTIFOCAL PNEUMONIA. RAPID COVID TEST AND PCR POSITIVE. STARTED COVID PROTOCOL, CONVALESCENT PLASMA IVF, IV ABX ROCEPHIN AND AZITHROMYCIN AND CONTINUED HOME MEDS. CONSULTED WITH CATH LAB TECHNOLOGIST AND ID. DC PLAN TO GO HOME WHEN STABLE CM TO FOLLOW. Addendum: 08/18/20 at 1155 by Soheila Singh CM DC PLANNING: SEEN BY ID DR WEST OFF ANTIBIOTICS , CURRENTLY ROOM AIR SATING 94. STABLE FOR DISCHARGE. CM TO FOLLOW Addendum: 08/18/20 at 1551 by Yumiko Guevara CM DC [facility] ATTENDANT: RECEIVED CALL FROM RN AMY STATING THAT PATIENT REFUSES TO LEAVE.
[2020-08-16 12:00] VITALS: BP 132/75
[2020-08-16] MEDS: REMDESIVIR (EUA) 100 MG in NACL 0.9% 100 ML IV SCH (12:13)
--- NOTE | 2020-08-16 12:25 | NUR ---
GLUCOSE-171 HUMALOG 2UNITS SUBQ PER SLIDING SCALE GIVEN. DUE MEDICATION REMDESIVER GIVEN AND LUNCH SERVED.
[2020-08-16] MEDS: INSULIN LISPRO SLIDING SCALE 100 UNITS/ML VIAL SUBQ PRN ×2 (12:27→16:53)
--- NOTE | 2020-08-16 14:11 | NUR ---
BLOOD BANK CONTACTED AND SPOKE WITH LAMAR TO THAW THE 1UNIT CONVALESCENT PLASMA.
[2020-08-16 16:00] VITALS: BP 163/87
--- NOTE | 2020-08-16 16:20 | NUR ---
1 UNIT CONVALESCENT PLASMA 196ML STARTED AT LEFT HAND, G24 IV CANNULA PATENT NOTED. VERIFIED BY SECOND RN EMILY. VITAL SIGNS TAKEN AND RECORDED.
--- NOTE | 2020-08-16 17:50 | NUR ---
1 UNIT CONVALESCENT PLASMA 196ML COMPLETED WITHOUT TRANSFUSION REACTION NOTED, VITAL SIGNS STABLE NOTED.
--- NOTE | 2020-08-16 18:07 | NUR ---
FULLY AWAKE AND HAVING HER DINNER, NOT IN DISTRESS NOTED
--- NOTE | 2020-08-16 19:17 | NUR ---
ENDORSED TO NIGHT IN STABLE CONDITION FOR CONTINUITY OF CARE
--- NOTE | 2020-08-16 19:18 | NUR ---
RECEIVED REPORT FROM DAY SHIFT NURSE. PT IN BED RESTING WITH HOB ELEVATED. RESPIRATIONS EVEN AND UNLABORED TO O2 3LPM/NC. SKIN IS WARM, DRY, AND INTACT. ABDOMEN IS SOFT AND NON-TENDER. PT WITH IV ACCESS ON LEFT HAND G24, PATENT AND INTACT, IVF INFUSING WELL. PT DENIES ANY PAIN OR DISCOMFORT AT THIS TIME. POC DISCUSSED, PT VERBALIZED UNDERSTANDING. SAFETY MEASURES IN PLACE. CALL LIGHT WITHIN REACH, WILL CONTINUE TO MONITOR.
[2020-08-16 20:00] VITALS: BP 148/69
[2020-08-16] MEDS: SIMVASTATIN 20 MG TAB PO SCH (20:26)
--- NOTE | 2020-08-16 20:28 | NUR ---
VITAL SIGNS STABLE. SCHEDULED MEDS GIVEN ORDERED. PT IN BED RESTING. DENIES ANY PAIN OR DISCOMFORT AT THIS TIME. O2 IN PLACE. RESPIRATIONS EVEN AND UNLABORED. PT NOT IN DISTRESS. PT KEPT COMFORTABLE. NEW IV BAG HUNG, IV INFUSING WELL. SAFETY MEASURES IN PLACE. CALL LIGHT WITHIN REACH. WILL CONTINUE TO MONITOR.
--- NOTE | 2020-08-16 22:09 | NUR ---
ROUNDS MADE. PT IN BED SLEEPING. O2 IN PLACE. PT NOT IN DISTRESS. VISIBLE CHEST RISE AND FALL NOTED. PT KEPT COMFORTABLE. SAFETY MEASURES IN PLACE. WILL CONTINUE TO MONITOR.
[2020-08-17] VITALS: BP 158/64
--- NOTE | 2020-08-17 00:12 | NUR ---
VITAL SIGNS STABLE. O2 IN PLACE. PT DENIES ANY PAIN OR DISCOMFORT. NO REQUESTS MADE. SAFETY MEASURES IN PLACE. CALL LIGHT WITHIN REACH. WILL CONTINUE TO MONITOR.
--- NOTE | 2020-08-17 02:37 | NUR ---
ROUNDS MADE. PT IN BED SLEEPING. O2 IN PLACE. PT NOT IN DISTRESS. VISIBLE CHEST RISE AND FALL NOTED. NO S/SX OF DISTRESS/DISCOMFORT NOTED. PT KEPT COMFORTABLE. SAFETY MEASURES IN PLACE. CALL LIGHT WITHIN REACH. WILL CONTINUE TO MONITOR.
[2020-08-17 04:00] VITALS: BP 146/75
[2020-08-17] MEDS ORDERED: KETOROLAC 15 MG/ML VIAL IVP ONE (04:25)
--- NOTE | 2020-08-17 04:30 | NUR ---
VS STABLE. PT VERBALIZED HEADACHE/NECK PAIN 04/21. KETOROLAC GIVEN ORDERED. CALL LIGHT WITHIN REACH. WILL CONTINUE TO MONITOR.
[2020-08-17] MEDS: NACL 0.9% 1,000 ML IV SCH ×2 (06:16→16:39)
[2020-08-17] MEDS: BLOOD GLUCOSE MONITORING 1 DEV DEV FS SCH ×4 (06:30→19:57)
[2020-08-17] MEDS: LEVOTHYROXINE 0.088 MG TAB PO SCH (06:32)
--- NOTE | 2020-08-17 07:12 | NUR ---
ENDORSED TO DAY SHIFT NURSE FOR CONTINUITY OF CARE.
--- NOTE | 2020-08-17 07:18 | NUR ---
RECEIVED PATIENT FROM NIGHT NURSE. PATIENT AWAKE, ALERT, ORIENTED X 4. RESP EVEN AND UNLABORED ON 3L NC. PATIENT DENIES OF PAIN OR DISCOMFORT AT THIS TIME. LH IV INFUSING WELL WITH NS 100ML/HR. PLAN OF CARE DISCUSSED WITH PATIENT. PATIENT VERBALIZED UNDERSTANDING. SAFETY MEASURES IN PLACE. CALL LIGHT WITHIN REACH. HEAD OF BED ELEVATED. WILL CONTINUE TO MONITOR.
[2020-08-17 07:36] LABS: ALBUMIN 3.1 g/dL (3.4-5.0); ANION GAP 11.8 (8-16); CARBON DIOXIDE 27.6 mmol/L (21-32); CREATININE 0.6 mg/dL (0.6-1.3); POTASSIUM 3.4 mmol/L (3.5-5.1); TOTAL BILIRUBIN 0.4 mg/dL (0.0-1.0)
[2020-08-17 07:37] LABS: BASOPHILS % (AUTO) 0.1 % (0.0-2.0); HEMATOCRIT 35.6 % (36-48); LYMPHOCYTES # (AUTO) 1.1 K/uL (2.5-16.5); LYMPHOCYTES % (AUTO) 16.1 % (20.5-51.1); MEAN CORPUSCULAR HEMOGLOBIN 31 pg (27-31); MEAN CORPUSCULAR HGB CONC 34 g/dL (33-37); MEAN CORPUSCULAR VOLUME 92.6 fL (80-94); MONOCYTES # (AUTO) 0.5 K/uL (0.8-1.0); MONOCYTES % (AUTO) 7.5 % (1.7-9.3); NEUTROPHILS # (AUTO) 5.2 K/uL (1.8-7.7); NEUTROPHILS % (AUTO) 76.3 % (42.2-75.2); PLATELET COUNT (AUTO) 209 K/uL (140-450); RED BLOOD CELL COUNT(AUTO) 3.84 MIL/uL (4.20-5.40); RED CELL DISTRIBUTION WIDTH 12.9 % (11.6-13.7); WHITE BLOOD COUNT (AUTO) 6.8 K/uL (4.8-10.8)
[2020-08-17 08:00] VITALS: BP 145/66
[2020-08-17] MEDS: MAGNESIUM OXIDE 400 MG TAB PO SCH (08:40)
[2020-08-17] MEDS: ASCORBIC ACID 500 MG TAB PO SCH (08:40)
[2020-08-17] MEDS: ZINC SULF 220 MG CAP PO SCH ×2 (08:40→20:02)
[2020-08-17] MEDS: VITAMIN D 400 IU TAB PO SCH (08:41)
[2020-08-17] MEDS: LOSARTAN 25 MG TAB PO SCH (08:41)
[2020-08-17] MEDS: ENOXAPARIN 40 MG/0.4 ML SYR SUBQ SCH (08:42)
[2020-08-17] MEDS: METOPROLOL 25 MG TAB PO SCH ×2 (09:00→20:03)
--- NOTE | 2020-08-17 09:06 | NUR ---
MORNING ROUTINE MEDICATIONS GIVEN. PATIENT TOLERATED WELL. METOPROLOL HELD D/T LOW HR OF 59, FOLLOWING PROTOCOL. PATIENT SEEMS TIRED STATED SHE DID NOT GET MUCH SLEEP LAST NIGHT BECAUSE SHE WAS WORRIED. RESP EVEN AND UNLABORED ON 3L NC, O2SAT 95%, LUNGS DIMINISHED LOWER LOBES. PATIENT DENIES OF PAIN OR DISCOMFORT. PATIENT IS ALERT AND ORIENTED X4. LH 24G INTACT AND PATENT, INFUSING NS 100ML/HR. SKIN IS WARM TO TOUCH AND INTACT. BOWEL SOUNDS PRESENT. PATIENT ABLE TO USE BEDSIDE COMMODE WITHOUT ANY DIFFICULTY. HEAD OF BED ELEVATED. CALL LIGHT WITHIN REACH. WILL CONTINUE TO MONITOR.
--- NOTE | 2020-08-17 11:40 | NUR ---
pt titrated to 2L NC SPO2 94%, no signs of respiratory distress noted at this time, will continue to monitor, RN aware.
[2020-08-17] MEDS: LORazepam 2 MG/ML VIAL IM/IVP PRN (11:57)
[2020-08-17] MEDS: REMDESIVIR (EUA) 100 MG in NACL 0.9% 100 ML IV SCH (11:58)
[2020-08-17 12:00] VITALS: BP 150/82
[2020-08-17] MEDS: INSULIN LISPRO SLIDING SCALE 100 UNITS/ML VIAL SUBQ PRN ×3 (12:28→20:00)
--- NOTE | 2020-08-17 12:29 | NUR ---
BLOOD SUGAR 174. INSULIN COVERAGE GIVEN PER SLIDING SCALE. PATIENT FEELING ANXIOUS AND WAS GIVEN ATIVAN PRN. VITALS WNL. RESP EVEN AND UNLABORED ON 3L NC. DENIES OF PAIN AT THIS TIME. PATIENT ENCOURAGED DEEP BREATHING AND WATCHING TV FOR DISTRACTION. PATIENT VERBALIZED UNDERSTANDING. PT ABLE TO MAKE NEEDS KNOWN. SAFETY MEASURES IN PLACE. WILL CONTINUE TO MONITOR. Addendum: 08/17/20 at 1319 by Thi Blanco RN PATIENT WAS ASSISTED TO USE BEDSIDE COMMODE. PATIENT REMOVED HER OXYGEN AND DESAT TO 87% AFTER GETTING BACK INTO BED. 2L NC OXYGEN WAS GIVEN AND PATIENT TOLERATING BETTER O2SAT 94%.
--- NOTE | 2020-08-17 13:25 | NUR ---
Pt titrated to 1L NC, spo2 93%, RN aware, will continue to monitor. No signs of respiratory distress noted at this time, pt awake and alert.
--- NOTE | 2020-08-17 14:45 | NUR ---
PATIENT SITTING IN BED TALKING ON THE PHONE WITH FAMILY. RESP EVEN AND UNLABORED ON 2L NC. DENIES OF PAIN AT THIS TIME. PATIENT STATED SHES FEELING BETTER AND NOT RESTLESS. PATIENT WAS ENCOURAGED FLUIDS AND REST NEEDED. PATIENT VERBALIZED UNDERSTANDING. CALL LIGHT WITHIN REACH. WILL CONTINUE TO MONITOR.
[2020-08-17] MEDS ORDERED: LOSARTAN 25 MG TAB PO SCH (15:00)
[2020-08-17 16:00] VITALS: BP 147/66
--- NOTE | 2020-08-17 16:57 | NUR ---
BLOOD SUGAR 263. INSULIN GIVEN PER SLIDING SCALE. PATIENT USED THE BEDSIDE COMMODE, DENIES OF ANY SOB. OXYGEN IS TITRATING DOWN TO 1L NC AND PATIENT TOLERATING WELL. CALL LIGHT WITHIN REACH. PATIENT ABLE TO MAKE NEEDS KNOWN. WILL CONTINUE TO MONITOR.
--- NOTE | 2020-08-17 18:15 | NUR ---
PATIENT IN BED EATING DINNER HER FAMILY HAD BROUGHT. PATIENT AWAKE AND ALERT. ABLE TO MAKE NEEDS KNOWN. USES BEDSIDE COMMODE INDEPENDENTLY. RESP EVEN AND UNLABORED ON 1L NC. SAFETY MEASURES IN PLACE. WILL CONTINUE TO MONITOR.
--- NOTE | 2020-08-17 19:22 | NUR ---
RECEIVED REPORT FROM VENKATESH RNROCIO. PT AOX4 ON O2 1L N/C. NO S/S RESPIRATORY DISTRESS. NO C/O PAIN AT THIS TIME. IV SITE LEFT HAND 24G, PATENT AND INTACT, RUNNING NS @100ML/HR. POC DISCUSSED. PT VERBALIZED UNDERSTANDING. SAFETY PRECAUTIONS IN PLACE. CALL LIGHT WITHIN REACH. WILL CONTINUE TO MONITOR
--- NOTE | 2020-08-17 19:22 | NUR ---
ENDORSED PATIENT TO NIGHT NURSE. PATIENT IN STABLE CONDITION.
[2020-08-17 20:00] VITALS: BP 149/77
--- NOTE | 2020-08-17 20:00 | NUR ---
PT BLOOD SUGAR 239. ADMINISTERED 4 UNITS INSULIN PER SLIDING SCALE. PT TOLERATED WELL. WILL CONTINUE TO MONITOR
[2020-08-17] MEDS: SIMVASTATIN 20 MG TAB PO SCH (20:02)
--- NOTE | 2020-08-17 20:03 | NUR ---
ADMINISTERED SCHEDULED MEDS PER MD. MEDICATION EDUCATION GIVEN. PT VERBALIZED UNDERSTANDING. PT TOLERATED WELL. WILL CONTINUE TO MONITOR
--- NOTE | 2020-08-17 22:30 | NUR ---
PT RESTING IN BED. STATES FEELING TIRED, DENIES PAIN, DENIES SOB, O2 SAT 92%. WILL CONTINUE TO MONITOR
[2020-08-18] VITALS: BP 138/70
--- NOTE | 2020-08-18 00:25 | NUR ---
PT ASLEEP IN BED. RESPIRATIONS EVEN AND UNLABORED. NO DISTRESS NOTED. WILL CONTINUE TO MONITOR
[2020-08-18] MEDS: NACL 0.9% 1,000 ML IV SCH ×2 (01:02→11:41)
--- NOTE | 2020-08-18 03:15 | NUR ---
PT ASLEEP IN BED. NO DISTRESS NOTED. WILL CONTINUE TO MONITOR
[2020-08-18 04:00] VITALS: BP 152/81
[2020-08-18 06:12] LABS: BASOPHILS % (AUTO) 0.1 % (0.0-2.0); EOSINOPHILS % (AUTO) 0.1 % (0.0-4.0); HEMATOCRIT 34.7 % (36-48); HEMOGLOBIN 12.1 g/dL (12.0-16.0); LYMPHOCYTES # (AUTO) 0.9 K/uL (2.5-16.5); MEAN CORPUSCULAR HEMOGLOBIN 32 pg (27-31); MEAN CORPUSCULAR HGB CONC 35 g/dL (33-37); MEAN CORPUSCULAR VOLUME 91.2 fL (80-94); MONOCYTES # (AUTO) 0.4 K/uL (0.8-1.0); MONOCYTES % (AUTO) 9.6 % (1.7-9.3); NEUTROPHILS # (AUTO) 3.1 K/uL (1.8-7.7); NEUTROPHILS % (AUTO) 70.2 % (42.2-75.2); PLATELET COUNT (AUTO) 222 K/uL (140-450); RED BLOOD CELL COUNT(AUTO) 3.81 MIL/uL (4.20-5.40); RED CELL DISTRIBUTION WIDTH 12.8 % (11.6-13.7); WHITE BLOOD COUNT (AUTO) 4.5 K/uL (4.8-10.8)
[2020-08-18] MEDS: BLOOD GLUCOSE MONITORING 1 DEV DEV FS SCH ×2 (06:33→11:52)
--- NOTE | 2020-08-18 06:33 | NUR ---
PT BLOOD SUGAR 105. NO INSULIN COVERAGE NEEDED. PT AWAKE AND RESTING IN BED. DENIES PAIN. NO DISTRESS NOTED. O2 SAT 93%. WILL CONTINUE TO MONITOR
[2020-08-18 06:35] LABS: CARBON DIOXIDE 24.8 mmol/L (21-32); CREATININE 0.5 mg/dL (0.6-1.3); POTASSIUM 3.8 mmol/L (3.5-5.1); TOTAL BILIRUBIN 0.4 mg/dL (0.0-1.0)
--- NOTE | 2020-08-18 07:05 | NUR ---
ENDORSED PT TO DAY RN FOR CONTINUITY OF CARE. PT IS IN STABLE CONDITION
--- NOTE | 2020-08-18 07:07 | NUR ---
RECEIVED REPORT FROM NIGHT NURSE PT IS AAOX4 ON 1LPM OXYGEN VIA NC SATURATION AT 93-94%, AMBULATORY AND WITH BEDSIDE COMMODE,CARDIAC DIET, SKIN INTACT, IV SITES INTACT AND PATENT AT LEFT HAND. SAFETY MEASURES IN PLACE AND CALL LIGHT WITHIN REACH. WILL CONTINUE TO MONITOR.
[2020-08-18 08:00] VITALS: BP 161/87
[2020-08-18] MEDS: MAGNESIUM OXIDE 400 MG TAB PO SCH (08:16)
[2020-08-18] MEDS: ASCORBIC ACID 500 MG TAB PO SCH (08:16)
[2020-08-18] MEDS: VITAMIN D 400 IU TAB PO SCH (08:16)
[2020-08-18] MEDS: ZINC SULF 220 MG CAP PO SCH (08:17)
[2020-08-18] MEDS: LEVOTHYROXINE 0.1 MG TAB PO SCH (08:18)
[2020-08-18] MEDS: METOPROLOL 25 MG TAB PO SCH (08:18)
[2020-08-18] MEDS: ENOXAPARIN 40 MG/0.4 ML SYR SUBQ SCH (08:21)
--- NOTE | 2020-08-18 08:30 | NUR ---
MEDICATIONS DUE GIVEN AT THIS TIME, CHECKED VITAL SIGNS PRIOR TO MEDICATION BP 161/87 NC 64 OXYGEN SATURATION AT 94%. PAT IS FEELING TIRED AND WEAK, NO APPETITE. ENCOURAGE TO EAT AND PT VERBALIZES UNDERSTANDING. SAFETY MEASURES IN PLACE CALL LIGHT WITHIN REACH. WILL CONTINUE TO MONITOR.
[2020-08-18] MEDS ORDERED: LOSARTAN 50 MG TAB PO SCH (09:00)
[2020-08-18] MEDS ORDERED: ASPI-1205 PO (10:30)
[2020-08-18] MEDS ORDERED: DEC4 PO (10:30)
[2020-08-18] MEDS ORDERED: AZIT250T3 PO (10:30)
--- NOTE | 2020-08-18 10:40 | NUR ---
PATIENT ON ROOM AIR AT THIS TIME AND OXYGEN SATURATION IS AT 92% PER DOCTORS ORDER.
[2020-08-18] MEDS: REMDESIVIR (EUA) 100 MG in NACL 0.9% 100 ML IV SCH (11:47)
[2020-08-18] MEDS: INSULIN LISPRO SLIDING SCALE 100 UNITS/ML VIAL SUBQ PRN (11:58)
--- NOTE | 2020-08-18 11:59 | NUR ---
medications due given and blood sugar taken at 233 mg/dl gave insulin and check vital signs bp 161/81 pr 62 and oxygen saturation 94% on room air.
--- NOTE | 2020-08-18 12:01 | NUR ---
08/18/20 RD FOLLOW UP COMPLETED PLEASE REFER TO NUTRITION ASSESSMENT UNDER CARE ACTIVITY FOR ESTIMATED NUTRITIONAL NEEDS. 1. CONTINUE CARDIAC DIET 2. RECOMMEND GLUCERNA BID 3. HONOR FOOD PREFERENCES & ENCOURAGE INCREASED PO INTAKE 4. NUTRITION EDUCATION ON COVID-19 FOR DISCHARGE WAS PROVIDED BY RD 5. F/U 3-5 DAYS; MODERATE RISK YANET MCLEOD RD
--- NOTE | 2020-08-18 12:50 | NUR ---
PATIENT OXYGEN SATURATION AT 92% ON ROOM AIR, NO DISTRESS NOTED.
--- NOTE | 2020-08-18 16:25 | NUR ---
DISCHARGED INSTRUCTIONS GIVEN TO PATIENT AT BEDSIDE AND ENCOURAGED PATIENT TO CONTINUE MEDICATIONS PRESCRIBED, SIDE EFFECTS AND DOSAGE, INSTRUCTED PATIENT TO FOLLOWUP WITH PCP AND TO ISOLATE SELF FOR 14 DAYS. ENCOURAGED TO SEEK MEDICAL HELP IN CASE OF MEDICAL EMERGENCIES. REMOVED TELEMONITOR AND IV SITES INTACT AND COMPLETE. ANSWERED PATIENT QUESTIONS AND VERBALIZES UNDERSTANDING. PATIENT CHANGED TO HOME CLOTHES AND TOOK ALL HER BELONGINGS. ESCORTED TO [facility], PT IS BEING DISCHARGED TO HOME. PT IS STABLE.
== END 2020-08-18 16:25 | disposition home or self-care (01) | DRG 177 ==
LOC: MED 09:12 → MTU 11:06
PROVIDERS: ADMIT Family Medicine; ATTEND Family Medicine
PROC: XW033E5 Introduction of Remdesivir Anti-infective into Peripheral Vein, Percutaneous Approach, New Technology Group 5 (ICD-10-PCS; 2020-08-14)
PROC: XW13325 Transfusion of Convalescent Plasma (Nonautologous) into Peripheral Vein, Percutaneous Approach, New Technology Group 5 (ICD-10-PCS; principal; 2020-08-16)
DX: U07.1 COVID-19 (principal); J12.89 Other viral pneumonia; J96.00 Acute respiratory failure, unspecified whether with hypoxia or hypercapnia; E44.0 Moderate protein-calorie malnutrition; J45.909 Unspecified asthma, uncomplicated; E11.9 Type 2 diabetes mellitus without complications; I10 Essential (primary) hypertension; E78.5 Hyperlipidemia, unspecified; E03.9 Hypothyroidism, unspecified; D72.819 Decreased white blood cell count, unspecified; E87.6 Hypokalemia; E83.42 Hypomagnesemia; R74.01 Elevation of levels of liver transaminase levels; Z88.5 Allergy status to narcotic agent; Z88.8 Allergy status to other drugs, medicaments and biological substances; Z79.84 Long term (current) use of oral hypoglycemic drugs; Z79.899 Other long term (current) drug therapy; Z90.49 Acquired absence of other specified parts of digestive tract; Z85.850 Personal history of malignant neoplasm of thyroid; Z68.28 Body mass index [BMI] 28.0-28.9, adult
CPT/HCPCS: 36415; 71045; 74018; 80053; 82150; 82550; 82728; 82948; 83036; 83605; 83615; 83690; 83735; 83880; 84100; 84439; 84443; 84484; 85025; 85379; 85610; 85651; 85730; 86140; 86886; 86900; 86901; 87040; 87081; 96361; 96365; 99285; J0456; J0696; J1650; J1815; J1885; J2001; J2060; J3480; J7030; J7060; P9017; Q0092; U0003-CS

== ENCOUNTER 2020-09-17 17:47 | Emergency (ER) | payer OTHER, SELFPAY ==
[~2020-09-17] VITALS: Ht 157.5 cm; Wt 77.1 kg
[~2020-09-17 17:47] MED LIST changes: +ASPI-1205 PO; +AZIT250T3 PO; +DEC4 PO; +LOSA25TA43 PO; +METO25TA14 PO; +VITD400 PO
[2020-09-17 17:51] VITALS: BP 125/60
[2020-09-17] MEDS ORDERED: ASPIRIN 81 MG TAB.CHEW PO ONE (19:15)
[2020-09-17 20:12] LABS: BASOPHILS % (AUTO) 0.5 % (0.0-2.0); EOSINOPHILS # (AUTO) 0.1 K/uL (0-0.4); EOSINOPHILS % (AUTO) 0.9 % (0.0-4.0); HEMOGLOBIN 12.8 g/dL (12.0-16.0); LYMPHOCYTES # (AUTO) 1.2 K/uL (2.5-16.5); LYMPHOCYTES % (AUTO) 18.5 % (20.5-51.1); MEAN CORPUSCULAR HEMOGLOBIN 32 pg (27-31); MEAN CORPUSCULAR HGB CONC 34 g/dL (33-37); MEAN CORPUSCULAR VOLUME 96.5 fL (80-94); MONOCYTES # (AUTO) 0.5 K/uL (0.8-1.0); MONOCYTES % (AUTO) 7.9 % (1.7-9.3); NEUTROPHILS # (AUTO) 4.8 K/uL (1.8-7.7); NEUTROPHILS % (AUTO) 72.2 % (42.2-75.2); PLATELET COUNT (AUTO) 236 K/uL (140-450); RED BLOOD CELL COUNT(AUTO) 3.94 MIL/uL (4.20-5.40); RED CELL DISTRIBUTION WIDTH 15.1 % (11.6-13.7); WHITE BLOOD COUNT (AUTO) 6.7 K/uL (4.8-10.8)
[2020-09-17 20:18] LABS: APPEARANCE,URINE CLEAR (CLEAR); BILIRUBIN,URINE NEGATIVE (NEGATIVE); BLOOD, URINE TRACE-I (NEGATIVE); COLOR,URINE YELLOW (YELLOW); LEUKOCYTE ESTERASE ,URINE 1+ (NEGATIVE); NITRITE, URINE NEGATIVE (NEGATIVE); UGLUCOSE NEGATIVE (NEGATIVE)
[2020-09-17 20:26] LABS: ALBUMIN 4.1 g/dL (3.4-5.0); ANION GAP 16.8 (8-16); CARBON DIOXIDE 24.2 mmol/L (21-32); CREATININE 0.7 mg/dL (0.6-1.3); TOTAL BILIRUBIN 0.3 mg/dL (0.0-1.0)
[2020-09-17 20:31] LABS: RBC,URINE 0-5 /HPF (0-5)
[2020-09-17 21:09] VITALS: BP 134/50
== END 2020-09-17 21:05 | disposition left against medical advice (07) ==
LOC: MED 17:47
DX: R07.9 Chest pain, unspecified (principal); B34.9 Viral infection, unspecified; M54.5 Low back pain; E11.9 Type 2 diabetes mellitus without complications; E07.9 Disorder of thyroid, unspecified; I10 Essential (primary) hypertension; Z93.0 Tracheostomy status; Z88.6 Allergy status to analgesic agent; Z85.9 Personal history of malignant neoplasm, unspecified; Z79.899 Other long term (current) drug therapy; Z20.828 Contact with and (suspected) exposure to other viral communicable diseases
CPT/HCPCS: 36415; 71045; 80053; 81001; 84484; 85025; 85379; 87086; 87426; 87804; 93005; 99285; Q0092

== ENCOUNTER 2021-05-23 15:22 | Emergency (ER) | payer OTHER ==
[~2021-05-23] VITALS: Ht 157.5 cm; Wt 78.9 kg
[2021-05-23 15:31] VITALS: BP 160/97
--- NOTE | 2021-05-23 16:04 | NUR ---
VERA FORD AT BEDSIDE EVALUATING PT
[2021-05-23] MEDS ORDERED: KETOROLAC 30 MG/ML VIAL IM ONE (16:05)
[2021-05-23] MEDS ORDERED: NAPR-1704 PO (16:11)
[2021-05-23] MEDS ORDERED: KETOROLAC 60 MG/2 ML VIAL IM ONE (16:15)
--- NOTE | 2021-05-23 16:21 | NUR ---
PATIENT ASSESSED AND DISCHARGED BY VERA FORD. NO NURSING INTERVENTIONS PERFORMED
[2021-05-23 16:22] VITALS: BP 154/89
== END 2021-05-23 16:24 | disposition home or self-care (01) ==
LOC: MED 15:22
DX: G89.18 Other acute postprocedural pain (principal); K08.89 Other specified disorders of teeth and supporting structures; E11.9 Type 2 diabetes mellitus without complications; I10 Essential (primary) hypertension; E07.9 Disorder of thyroid, unspecified; Z79.84 Long term (current) use of oral hypoglycemic drugs; Z79.899 Other long term (current) drug therapy; Z79.82 Long term (current) use of aspirin; Z85.9 Personal history of malignant neoplasm, unspecified; Z90.49 Acquired absence of other specified parts of digestive tract; Z98.890 Other specified postprocedural states; Z88.5 Allergy status to narcotic agent; Z88.6 Allergy status to analgesic agent
CPT/HCPCS: 96372; 99283; J1885

== ENCOUNTER 2021-12-03 09:55 | Emergency (ER) | payer OTHER ==
[~2021-12-03] VITALS: Ht 152.4 cm; Wt 75.9 kg
[~2021-12-03 09:55] MED LIST changes: +NAPR-1704 PO
[2021-12-03 10:21] VITALS: BP 144/103
[2021-12-03 12:04] VITALS: BP 137/70
--- NOTE | 2021-12-03 12:05 | NUR ---
Patient discharged with v/s stable. Written and verbal after care instructions given and explained. Patient verbalized understanding. Ambulatory with steady gait. All questions addressed prior to discharge. Advised to follow up with PMD.
== END 2021-12-03 12:04 | disposition home or self-care (01) ==
LOC: MED 09:55
DX: M79.652 Pain in left thigh (principal); E11.9 Type 2 diabetes mellitus without complications; I10 Essential (primary) hypertension; E07.9 Disorder of thyroid, unspecified; Z88.5 Allergy status to narcotic agent; Z88.6 Allergy status to analgesic agent; Z79.899 Other long term (current) drug therapy; Z79.82 Long term (current) use of aspirin; Z98.890 Other specified postprocedural states; Z85.9 Personal history of malignant neoplasm, unspecified
CPT/HCPCS: 73502; 99284

== ENCOUNTER 2023-02-16 12:47 | Emergency (ER) | payer OTHER ==
[~2023-02-16] VITALS: Ht 154.9 cm; Wt 74.8 kg
[~2023-02-16 12:47] MED LIST changes: +METF-346 PO; -METF500T PO; +SIMV-372 PO; -SIMV20TA1 PO
[2023-02-16 13:06] VITALS: BP 149/68
[2023-02-16] MEDS ORDERED: AMOX-1230 PO (14:51)
[2023-02-16] MEDS ORDERED: NIRM1TAB5 PO (14:51)
--- NOTE | 2023-02-16 15:00 | NUR ---
Patient discharged with v/s stable. Written and verbal after care instructions given and explained. Patient alert, oriented and verbalized understanding of instructions. Ambulatory with steady gait. All questions addressed prior to discharge. ID band removed. Patient advised to follow up with PMD. Rx of paxlovid, amox-clav (sent) given. Patient educated on indication of medication including possible reaction and side effects. Opportunity to ask questions provided and answered.
[2023-02-16 15:02] VITALS: BP 149/68
== END 2023-02-16 15:00 | disposition home or self-care (01) ==
LOC: MED 12:47
DX: U07.1 COVID-19 (principal); J06.9 Acute upper respiratory infection, unspecified; E11.9 Type 2 diabetes mellitus without complications; I10 Essential (primary) hypertension; E78.5 Hyperlipidemia, unspecified; Z85.850 Personal history of malignant neoplasm of thyroid; Z85.118 Personal history of other malignant neoplasm of bronchus and lung; Z79.899 Other long term (current) drug therapy; Z79.2 Long term (current) use of antibiotics; Z79.1 Long term (current) use of non-steroidal anti-inflammatories (NSAID); Z79.82 Long term (current) use of aspirin; Z88.5 Allergy status to narcotic agent; Z88.6 Allergy status to analgesic agent
CPT/HCPCS: 99283